=== PATIENT | female | born 1945 | race Caucasian/White ===

== ENCOUNTER 2021-08-10 18:48 | Emergency (ER) | payer OTHER ==
[2021-08-10 19:32] LABS: HEMOGLOBIN 12.1 gm/dl (12.3-15.3); RED BLOOD COUNT 3.97 M/UL (4.00-5.10); WHITE BLOOD COUNT 9.3 K/UL (4.5-11.0)
[2021-08-10 19:51] LABS: BUN/CREATININE RATIO 29 (0-10)
== END 2021-08-10 21:00 | disposition home or self-care (01) ==
LOC: ER1 18:48
PROVIDERS: Physician Assistant
DX: S01.01XA Laceration without foreign body of scalp, initial encounter (principal); Z23 Encounter for immunization; W19.XXXA Unspecified fall, initial encounter; Y92.009 Unspecified place in unspecified non-institutional (private) residence as the place of occurrence of the external cause
CPT/HCPCS: 12001; 70450; 71045; 72125; 80053; 82550; 82553; 83735; 84484; 85025; 90471; 90714; 93005; 99284